=== PATIENT | male | born 1945 | race Hispanic/Latino ===

== ENCOUNTER 2019-07-05 10:00 | Day surgery (SDC) | payer OTHER ==
[~2019-07-05 10:00] MED LIST: SODIUM CHLORIDE 0.9% 1000 ML 1,000 ML IV SCH
[2019-07-05] MEDS ORDERED: LIDOCAINE MPF (2%) 20 MG/1 ML VIAL 5 ML ONE (11:00)
--- NOTE | 2019-07-05 11:05 | Anesthesia Day of Surgery ---
Anesthesia Day of Surgery - Day of Surgery Patient Examined: Yes Patient H&P Reviewed: Yes Patient is NPO: Yes
--- NOTE | 2019-07-05 11:18 | Anesthesia Consultation ---
Anesthesia Consult and Med Hx Date of service: 07/05/19 - Airway Anesthetic Teeth Evaluation: Good, Caps ROM Head & Neck: Adequate Mental/Hyoid Distance: Adequate Mallampati Class: Class III Intubation Access Assessment: Possibly Difficult - Pre-Operative Health Status ASA Pre-Surgery Classification: ASA3 Proposed Anesthetic Plan: MAC - Pulmonary Hx Asthma: Yes (Cardiac Asthma) Hx Sleep Apnea: Yes - Cardiovascular System Hx Hypertension: Yes (Pt states can climb two flights of stairs) Hx Coronary Artery Disease: Yes (Sleeps on one pillow. Reports some ankle swelling) Hx Heart Attack/AMI: No Hx Cardia Arrhythmia: Yes (Tachy)
[2019-07-05] MEDS ORDERED: PROPOFOL 200 MG/20 ML VIAL IV ONE ×2 (12:13)
--- NOTE | 2019-07-05 13:17 | Procedure Note ---
Date of procedure: 07/05/19 Pre-op diagnosis: H/O Colon Polyps/ Colon Polyp Screening Post-op diagnosis: other (Multiple Colon Polyps in the Ascending Colon,Distal Transverse Colon,Sigmoid Colon and Rectum/Moderate,Left Colon diverticuli and Minor,External Hemorrhoid but no Internal Hemorrhoids) Procedure: Colonoscopy with Snare Polypectomy and Cold Biopsy and use of Woodward Net Anesthesia: MAC Surgeon: TREVOR MERRITT Estimated blood loss: minimal Pathology: list Specimen disposition: to lab Condition: stable Disposition: same day (Encourage fiber intake; avoid aspirin and NSAID and aanticoagulants for 4 days, otherwise resume home medication. Follow up in 1 to 2 weeks ([phone]).)
--- NOTE | 2019-07-05 13:22 | Operative Report ---
PROCEDURE: Colonoscopy with snare polypectomy, cold biopsy and use of a Woodward net. INDICATIONS: A 73-year-old white male with an underlying history of diabetes, hypertension, who has prior history of colonoscopy, last colonoscopy was done a few years ago, where he was said to have had a few polyps removed at that time. Repeat colonoscopy was done to make sure there was not any recurrence of any polyps. DESCRIPTION OF PROCEDURE: Procedure was done after getting informed consent with MAC anesthesia. Initial rectal exam was unremarkable other than for some minor external hemorrhoids. Instrument was passed through the rectum onto the cecum, which was identified with ileocecal valve and the appendiceal orifice. Visualization was fair. The mucosa was washed with copious amounts of water. The cecum showed normal mucosa. In the ascending colon, there were about 4-5 polyps noted. These were removed by snare polypectomy and some were retrieved by the Woodward net. It was difficult to retrieve it otherwise, since the patient had heavy body movements with his respiration. Most of the transverse colon showed normal mucosa. In the distal transverse colon, there was another 11 mm polyp that was removed by snare excision and part of it was retrieved. The polyps that were in the ascending colon varied in size from 10-12 mm in diameter. In the sigmoid, there was a 10 mm polyp that was removed by snare polypectomy and retrieved and the rectum showed a small polyp, possibly hyperplastic that was removed by cold biopsy and removed. On the retroverted view, no internal hemorrhoid was noted. There was minimal bleeding associated with the polypectomy and no complications associated with the procedure. ASSESSMENT: History of colon polyps, colon polyp screening, multiple colon polyps noted in the proximal colon, namely the ascending colon and also in the distal transverse and sigmoid, there was 1 polyp each as well as in the rectum, there was 1 polyp there. The rectal polyp was possibly hyperplastic. There were no internal hemorrhoid noted and minor external hemorrhoid that was noted during the rectal exam. Plan is to have the patient resume his home medication, but to avoid any aspirin or aspirin-related products and anticoagulants for the next 3 days. The patient also had moderate diverticular disease involving the left colon and will be encouraged to take fiber supplements and follow up in the office in 1-2 weeks' time. The procedure was done in the GI lab with assistance of the GI lab team, which included Jeane MCDERMOTT including betsy Hare and with assistance of Anesthesia. JOB# [id number] DEL/CHANDLER
[2019-07-05 13:40] VITALS: BP 127/92
--- NOTE | 2019-07-06 08:47 | Post Anesthesia Evaluation ---
- Post Anesthesia Evaluation Patient Participated: Yes Airway Patent: Yes Stable Respiratory Function: Yes Nausea/Vomiting: No Temp > 96.8F: Yes Pain Manageable: Yes Adequeate Hydration: Yes Anesthesia Complications: No Block Receding Appropriately: Not Applicable Patient on Ventilator: No
== END 2019-07-05 13:47 | disposition home or self-care (01) ==
LOC: GIO 10:00
DX: Z12.11 Encounter for screening for malignant neoplasm of colon (principal); D12.8 Benign neoplasm of rectum; D12.3 Benign neoplasm of transverse colon; D12.2 Benign neoplasm of ascending colon; E11.9 Type 2 diabetes mellitus without complications; I10 Essential (primary) hypertension; I42.9 Cardiomyopathy, unspecified; I25.10 Atherosclerotic heart disease of native coronary artery without angina pectoris; J45.909 Unspecified asthma, uncomplicated; G47.30 Sleep apnea, unspecified; Z86.010 Personal history of colon polyps; Z79.899 Other long term (current) drug therapy
CPT/HCPCS: 45380; 45385; 88305; J2704; J7030

== ENCOUNTER 2019-07-11 10:18 | Inpatient (IN) | payer MEDICARE, OTHER ==
[2019-07-11 11:45] LABS: Basophils % (Auto) 0.4 % (0.0-1.8); Eosinophils # (Auto) 0.1 K/mm3 (0.0-0.4); Eosinophils % (Auto) 1.5 % (0.0-4.3); Hematocrit 42.5 % (35.5-45.6); Lymphocytes # (Auto) 1.1 K/mm3 (1.2-5.4); Lymphocytes % (Auto) 13.1 % (13.4-35.0); Mean Corpuscular HGB Conc 33 % (32-34); Mean Corpuscular Volume 97 fl (84-94); Monocytes # (Auto) 0.5 K/mm3 (0.0-0.8); Monocytes % (Auto) 6.4 % (0.0-7.3); Platelet Count 233 K/mm3 (140-440); Red Blood Count 4.37 M/mm3 (3.65-5.03); Red Cell Distribution Width 14.4 % (13.2-15.2)
[2019-07-11 11:54] LABS: INR 1.27 (0.87-1.13); Partial Thromboplastin Time 32.7 Sec. (24.2-36.6)
[2019-07-11 12:07] LABS: Albumin 3.8 g/dL (3.9-5); Calcium 8.7 mg/dL (8.4-10.2)
[2019-07-11] MEDS ORDERED: ONDANSETRON 4 MG ODT TAB ONE ×2 (12:09)
[2019-07-11] MEDS ORDERED: SODIUM CHLORIDE 0.9% 1000 ML 1,000 ML IV ONE ×3 (12:34→17:27)
--- NOTE | 2019-07-11 13:55 | History and Physical Report ---
History of Present Illness Chief complaint: Im bleeding History of present illness: 73 YO Male with Atrial Fib on Therapeutic anticoagulation with Xarelto, HTN, OA, Asthma presents to ED for evaluation. Pt states that he underwent a colonoscopy with polypectomy x7 last week. Pt restarted his anticoagulation 3 days ago. Pt has also experienced abdominal discomfort over the past 2 days with the sudden onset of bloody stools overnight. Pt acknowledges multiple bloody bowel movements overnight. Pt also reports generalized weakness. Pt transported to [facility] via private vehicle. Pt seen and evaluated in ED and found to have GI Bleed complicated by Acidosis. Pt admitted to [facility]. Pt denies fever, chills, CP, palpitations, trauma, syncope, ingestion of food/water from new/different sources. No prior admission for review. All listed medication reconciled at time of admission. Past History Past Medical History: other (see hpi) Past Surgical History: total knee replacement, Other (Rotator cuff surgery) Social history: . denies: smoking, alcohol abuse, prescription drug abuse Family history: no significant family history (reviewed) Medications and Allergies Allergies Allergy/AdvReac Type Severity Reaction Status Date / Time No Known Allergies Allergy Unverified 07/04/19 14:08 Home Medications Medication Instructions Recorded Confirmed Last Taken Type Allopurinol 07/04/19 07/03/19 History Atenolol 07/04/19 07/05/19 06:00 History Indomethacin 07/04/19 07/03/19 History Meloxicam 07/04/19 07/03/19 History Potassium 07/04/19 07/03/19 History ProAir HFA Inhaler 07/04/19 Unknown History Protonix 07/04/19 07/03/19 History Symbicort 160-4.5 Mcg Inhaler 07/04/19 07/03/19 History Tamsulosin 0.4 PO PRN 07/04/19 Unknown History Xarelto 07/04/19 06/30/19 History amLODIPine 5 mg PO DAILY 07/04/19 07/05/19 07/05/19 06:00 History Review of Systems Constitutional: no weight loss, no weight gain, no fever, no chills Ears, nose, mouth and throat: no ear pain, no ear discharge, no tinnitis, no decreased hearing, no nose pain, no nasal congestion Cardiovascular: no chest pain, no orthopnea, no palpitations, no rapid/irregular heart beat, no edema, no syncope Respiratory: no cough, no cough with sputum, no hemoptysis Gastrointestinal: abdominal pain, BRBPR, no nausea, no vomiting, no hematemesis, no coffee ground emesis, no early satiety Genitourinary Male: no hematuria, no flank pain, no discharge, no urinary frequency, no urinary hesitancy Rectal: bleeding, no pain, no incontinence Musculoskeletal: no neck stiffness, no neck pain, no shooting arm pain, no arm numbness/tingling, no low back pain Integumentary: no rash, no pruritis, no redness, no sores, no wounds, no jaundice, no boils Neurological: no transient paralysis, no paralysis, no weakness, no parathesias, no numbness, no tingling, no seizures, no syncope Psychiatric: no anxiety, no memory loss, no change in sleep habits, no sleep disturbances, no insomnia, no hypersomnia, no change in appetite, no change in libido, no suicidal ideation Endocrine: no cold intolerance, no heat intolerance, no polyphagia, no excessive thirst, no polydipsia, no polyuria, no nocturia Hematologic/Lymphatic: no easy bruising, no easy bleeding, no lymphadenopathy, no lymphedema Allergic/Immunologic: no urticaria, no wheezing, no persistent infections, no angioedema Exam - Constitutional Vitals: Temp Pulse Resp BP Pulse Ox 97.6 F 76 18 97/53 95 07/11/19 10:31 07/11/19 12:20 07/11/19 12:20 07/11/19 12:20 07/11/19 12:20 General appearance: Present: mild distress, obese - EENT Eyes: Present: PERRL ENT: hearing intact, clear oral mucosa - Neck Neck: Present: supple, normal ROM - Respiratory Respiratory effort: normal Respiratory: bilateral: CTA - Cardiovascular Heart Sounds: Present: S1 & S2. Absent: rub, click - Extremities Extremities: pulses symmetrical, No edema Peripheral Pulses: within normal limits - Abdominal General gastrointestinal: Present: soft, non-tender, non-distended, normal bowel sounds Male genitourinary: Present: normal - Integumentary Integumentary: Present: clear, warm, dry - Musculoskeletal Musculoskeletal: gait normal, strength equal bilaterally - Psychiatric Psychiatric: appropriate mood/affect, intact judgment & insight - Neurologic Neurologic: CNII-XII intact, moves all extremities Results - Labs CBC & Chem 7: 07/11/19 11:27 07/11/19 11:27 Labs: Abnormal lab results 07/11/19 07/11/19 07/11/19 Range/Units 11:27 11: 11:27 MCV 97 H (84-94) fl Lymph % (Auto) 13.1 L (13.4-35.0) % Lymph # 1.1 L (1.2-5.4) K/mm3 Seg Neutrophils % 78.6 H (40.0-70.0) % PT 15.7 H (12.2-14.9) Sec. INR 1.27 H (0.87-1.13) Chloride 108.7 H (98-107) mmol/L Carbon Dioxide 16 L (22-30) mmol/L Glucose 106 H (75-100) mg/dL Albumin 3.8 L (3.9-5) g/dL Assessment and Plan - Patient Problems (1) GI bleed Current Visit: Yes Status: Acute Qualifiers: GI bleed type/associated pathology: unspecified gastrointestinal hemorrhage type Qualified Code(s): K92.2 - Gastrointestinal hemorrhage, unspecified Plan to address problem: PPI therapy, serial cbc, PRBC transfusion if hgb drops more than 2 grams on sequential CBC, GI consulted in ED, Hold anticoagulation, repeat cbc (2) Acidosis Current Visit: Yes Status: Acute Plan to address problem: IVF resuscitation therapy, repeat bmp, IV bicarbonate x 1 (3) Obesity hypoventilation syndrome Current Visit: Yes Status: Acute Plan to address problem: Supplemental oxygen, nebulizer therapy, NIPPV as clinically indicated, (4) Hypotension due to blood loss Current Visit: Yes Status: Acute Plan to address problem: IVF resuscitation therapy, monitor bp q shift, (5) DVT prophylaxis Current Visit: Yes Status: Acute Plan to address problem: SCD to BLE while in bed, supportive care, hold anticoagulation secondary to GI gage guaman
[2019-07-11] MEDS ORDERED: ONDANSETRON 4 MG/2 ML INJ IV PRN (13:56)
[2019-07-11] MEDS ORDERED: ACETAMINOPHEN 325 MG TAB PO PRN (13:56)
--- NOTE | 2019-07-11 14:04 | Emergency Department Report ---
ED GI Bleed HPI - General Chief complaint: GI Bleed Stated complaint: BLOOD IN STOOL REF BY DR MURRAY Time Seen by Provider: 07/11/19 12:29 Source: patient Mode of arrival: Ambulatory Limitations: No Limitations - History of Present Illness Initial comments: Patient is a 73-year-old male with past medical history atrial fibrillation who is presenting with GI bleed. Patient states that on 07/05/2019 the patient had a colonoscopy with removal of approximate 7 polyps. Patient was taken off Xeralto prior to having the surgery. She states initially he had no Occasions after surgery and he restarted his Xeralto on 07/08/2019. Last night the patient started having some bleeding. Patient has had consuelo blood per rectum. States it is some associated dizziness especially when he stands up. Patient has some crampy lower abdominal discomfort. He denies fevers or nausea and vomiting cough cold or congestion. - Related Data Home Medications Medication Instructions Recorded Confirmed Last Taken Allopurinol 07/04/19 07/03/19 Atenolol 07/04/19 07/05/19 06:00 Indomethacin 07/04/19 07/03/19 Meloxicam 07/04/19 07/03/19 Potassium 07/04/19 07/03/19 ProAir HFA Inhaler 07/04/19 Unknown Protonix 07/04/19 07/03/19 Symbicort 160-4.5 Mcg Inhaler 07/04/19 07/03/19 Tamsulosin 0.4 PO PRN 07/04/19 Unknown Xarelto 07/04/19 06/30/19 amLODIPine 5 mg PO DAILY 07/04/19 07/05/19 07/05/19 06:00 Allergies Allergy/AdvReac Type Severity Reaction Status Date / Time No Known Allergies Allergy Unverified 07/04/19 14:08 ED Review of Systems ROS: Stated complaint: BLOOD IN STOOL REF BY DR MURRAY Other details as noted in HPI Comment: All other systems reviewed and negative ED Past Medical Hx - Past Medical History Previous Medical History?: Yes Hx Hypertension: Yes (Pt states can climb two flights of stairs) Hx Heart Attack/AMI: No Hx Arthritis: Yes Hx Asthma: Yes (Cardiac Asthma) - Surgical History Past Surgical History?: Yes Additional Surgical History: right knee replacement. right rotator cuff repair - Social History Smoking Status: Former Smoker Substance Use Type: Alcohol - Medications Home Medications: Home Medications Medication Instructions Recorded Confirmed Last Taken Type Allopurinol 07/04/19 07/03/19 History Atenolol 07/04/19 07/05/19 06:00 History Indomethacin 07/04/19 07/03/19 History Meloxicam 07/04/19 07/03/19 History Potassium 07/04/19 07/03/19 History ProAir HFA Inhaler 07/04/19 Unknown History Protonix 07/04/19 07/03/19 History Symbicort 160-4.5 Mcg Inhaler 07/04/19 07/03/19 History Tamsulosin 0.4 PO PRN 07/04/19 Unknown History Xarelto 07/04/19 06/30/19 History amLODIPine 5 mg PO DAILY 07/04/19 07/05/19 07/05/19 06:00 History ED Physical Exam - General Limitations: No Limitations General appearance: alert, in no apparent distress - Head Head exam: Present: atraumatic, normocephalic - Eye Eye exam: Present: normal appearance, PERRL, EOMI - ENT ENT exam: Present: mucous membranes moist - Neck Neck exam: Present: normal inspection - Respiratory Respiratory exam: Present: normal lung sounds bilaterally. Absent: respiratory distress, wheezes, rales, rhonchi - Cardiovascular Cardiovascular Exam: Present: normal rhythm, tachycardia, normal heart sounds. Absent: systolic murmur, diastolic murmur, rubs, gallop - GI/Abdominal GI/Abdominal exam: Present: soft, normal bowel sounds. Absent: distended, tenderness, guarding, rebound - Rectal Rectal exam: Present: deferred - Extremities Exam Extremities exam: Present: normal inspection - Back Exam Back exam: Present: normal inspection - Neurological Exam Neurological exam: Present: alert, oriented X3 - Psychiatric Psychiatric exam: Present: normal affect, normal mood - Skin Skin exam: Present: warm, dry, intact, normal color. Absent: rash ED Course Vital Signs 07/11/19 07/11/19 10:31 12:20 Temperature 97.6 F Pulse Rate 93 H 76 Respiratory 20 18 Rate Blood Pressure 91/69 Blood Pressure 97/53 [Left] O2 Sat by Pulse 98 95 Oximetry ED Medical Decision Making - Lab Data Result diagrams: 07/11/19 11:27 07/11/19 11:27 Lab Results 07/11/19 07/11/19 07/11/19 Range/Units 11:27 11:27 11:27 WBC 8.6 (4.5-11.0) K/mm3 RBC 4.37 (3.65-5.03) M/mm3 Hgb 14.0 (11.8-15.2) gm/dl Hct 42.5 (35.5-45.6) % MCV 97 H (84-94) fl MCH 32 (28-32) pg MCHC 33 (32-34) % RDW 14.4 (13.2-15.2) % Plt Count 233 (140-440) K/mm3 Lymph % (Auto) 13.1 L (13.4-35.0) % [place] % (Auto) 6.4 (0.0-7.3) % Eos % (Auto) 1.5 (0.0-4.3) % Baso % (Auto) 0.4 (0.0-1.8) % Lymph # 1.1 L (1.2-5.4) K/mm3 [place] # 0.5 (0.0-0.8) K/mm3 Eos # 0.1 (0.0-0.4) K/mm3 Baso # 0.0 (0.0-0.1) K/mm3 Seg Neutrophils % 78.6 H (40.0-70.0) % Seg Neutrophils # 6.8 (1.8-7.7) K/mm3 PT 15.7 H (12.2-14.9) Sec. INR 1.27 H (0.87-1.13) APTT 32.7 (24.2-36.6) Sec. Sodium 140 (137-145) mmol/L Potassium 4.5 (3.6-5.0) mmol/L Chloride 108.7 H (98-107) mmol/L Carbon Dioxide 16 L (22-30) mmol/L Anion Gap 20 mmol/L BUN 20 (9-20) mg/dL Creatinine 1.2 (0.8-1.5) mg/dL Estimated GFR 60 ml/min BUN/Creatinine Ratio 17 % Glucose 106 H (75-100) mg/dL Calcium 8.7 (8.4-10.2) mg/dL Total Bilirubin 0.60 (0.1-1.2) mg/dL AST 24 (5-40) units/L ALT 24 (7-56) units/L Alkaline Phosphatase 56 (35-129) units/L Total Protein 6.6 (6.3-8.2) g/dL Albumin 3.8 L (3.9-5) g/dL Albumin/Globulin Ratio 1.4 % Blood Type Antibody Screen 07/11/19 Range/Units 11:27 WBC (4.5-11.0) K/mm3 RBC (3.65-5.03) M/mm3 Hgb (11.8-15.2) gm/dl Hct (35.5-45.6) % MCV (84-94) fl MCH (28-32) pg MCHC (32-34) % RDW (13.2-15.2) % Plt Count (140-440) K/mm3 Lymph % (Auto) (13.4-35.0) % [place] % (Auto) (0.0-7.3) % Eos % (Auto) (0.0-4.3) % Baso % (Auto) (0.0-1.8) % Lymph # (1.2-5.4) K/mm3 [place] # (0.0-0.8) K/mm3 Eos # (0.0-0.4) K/mm3 Baso # (0.0-0.1) K/mm3 Seg Neutrophils % (40.0-70.0) % Seg Neutrophils # (1.8-7.7) K/mm3 PT (12.2-14.9) Sec. INR (0.87-1.13) APTT (24.2-36.6) Sec. Sodium (137-145) mmol/L Potassium (3.6-5.0) mmol/L Chloride (98-107) mmol/L Carbon Dioxide (22-30) mmol/L Anion Gap mmol/L BUN (9-20) mg/dL Creatinine (0.8-1.5) mg/dL Estimated GFR ml/min BUN/Creatinine Ratio % Glucose (75-100) mg/dL Calcium (8.4-10.2) mg/dL Total Bilirubin (0.1-1.2) mg/dL AST (5-40) units/L ALT (7-56) units/L Alkaline Phosphatase (35-129) units/L Total Protein (6.3-8.2) g/dL Albumin (3.9-5) g/dL Albumin/Globulin Ratio % Blood Type A POSITIVE Antibody Screen Negative Vital Signs 07/11/19 07/11/19 10:31 12:20 Temperature 97.6 F Pulse Rate 93 H 76 Respiratory 20 18 Rate Blood Pressure 91/69 Blood Pressure 97/53 [Left] O2 Sat by Pulse 98 95 Oximetry - Medical Decision Making At the time of discharge the patient blood pressure is 110 systolic. Patient states he is feeling better after receiving some IV fluids. Talked to Dr. Connelly who states that he believes the patient should stay for observation which I do agree. The patient will have his hemoglobin monitor and continuous IV fluids. Patient was been taken off his blood thinner and if he continues to bleed may need additional procedures to stop his bleeding. Critical care attestation.: If time is entered above; I have spent that time in minutes in the direct care of this critically ill patient, excluding procedure time. ED Disposition Clinical Impression: Hypotension due to blood loss GI bleed Qualifiers: GI bleed type/associated pathology: unspecified gastrointestinal hemorrhage type Qualified Code(s): K92.2 - Gastrointestinal hemorrhage, unspecified Disposition: DC-09 OP ADMIT IP TO THIS HOSP Is pt being admited?: Yes Does the pt Need Aspirin: No Condition: Stable Time of Disposition: 14:04
[2019-07-11] MEDS: PANTOPRAZOLE 40 MG INJ IV SCH ×2 (14:49→22:44)
[2019-07-11] MEDS ORDERED: SODIUM BICARB 8.4% 50 MEQ/50 ML SYRINGE IV ONE ×2 (17:00)
[2019-07-11] MEDS ORDERED: SODIUM CHLORIDE 0.9% 1000 ML 1,000 ML ONE (17:02)
--- NOTE | 2019-07-11 17:28 | Consultation ---
History of Present Illness - Reason for Consult Consult date: 07/11/19 Lower GI Bleeding - History of Present Illness 73 year old male with a h/o Hypertension,Cardiac asthma.tachyarrythmia and gout. Patient is on anticoagulants and NSAID. Patient had a colonoscopy on 07/05/2019 with removal of 7 colon polyps by snare polypectomy (5 from the proximal colon,one from the distal transverse colon and one from the proximal, descending colon). Patient had been of the anticoagulants for 3 days and had resumed his medication and today noticed lower GI bleeding for which the patient was adviced to come to the ER. Consult has been dictated. Patient is alert, oriented and in no apparent distress and has a Hemoglobin of 14. Patient is to be admitted and he is to observed closely. If the patient has a significant drop in his Hemoglobin, patient will receive blodd transfusion and will have a colonoscopy done. Past History Past Medical History: other (see hpi) Past Surgical History: total knee replacement, Other (Rotator cuff surgery) Social history: . denies: smoking, alcohol abuse, prescription drug abuse Family history: no significant family history (reviewed) Medications and Allergies Allergies Allergy/AdvReac Type Severity Reaction Status Date / Time No Known Allergies Allergy Unverified 07/04/19 14:08 Home Medications Medication Instructions Recorded Confirmed Last Taken Type Allopurinol 07/04/19 07/03/19 History Atenolol 07/04/19 07/05/19 06:00 History Indomethacin 07/04/19 07/03/19 History Meloxicam 07/04/19 07/03/19 History Potassium 07/04/19 07/03/19 History ProAir HFA Inhaler 07/04/19 Unknown History Protonix 07/04/19 07/03/19 History Symbicort 160-4.5 Mcg Inhaler 07/04/19 07/03/19 History Tamsulosin 0.4 PO PRN 07/04/19 Unknown History Xarelto 07/04/19 06/30/19 History amLODIPine 5 mg PO DAILY 07/04/19 07/05/19 07/05/19 06:00 History Active Meds: Active Medications Acetaminophen (Tylenol) 650 mg PO Q4H PRN PRN Reason: Pain MILD(1-3)/Fever >100.5/MEJÍA Amlodipine Besylate (Amlodipine) 5 mg PO QDAY NOEMI Sodium Chloride (Nacl 0.9% 1000 Ml) 1,000 mls @ 75 mls/hr IV DIRECT NOEMI Miscellaneous Medication (Tamsulosin) 0.4 mg PO PRN NOEMI Ondansetron HCl (Zofran) 4 mg IV Q8H PRN PRN Reason: Nausea And Vomiting Pantoprazole Sodium (Protonix) 40 mg IV BID [facility] Last Admin: 07/11/19 14:49 Dose: 40 mg Documented by: Sodium Chloride (Sodium Chloride Flush Syringe 10 Ml) 10 ml IV BID [facility] Sodium Chloride (Sodium Chloride Flush Syringe 10 Ml) 10 ml IV PRN PRN PRN Reason: LINE FLUSH Exam - Constitutional Vitals: Temp Pulse Resp BP Pulse Ox 97.6 F 75 16 103/72 95 07/11/19 10:31 07/11/19 16:52 07/11/19 16:52 07/11/19 16:52 07/11/19 16:52 Results - Labs CBC & Chem 7: 07/11/19 11:27 07/11/19 11:27 Labs: Abnormal lab results 07/11/19 07/11/19 07/11/19 Range/Units 11:27 11:27 11:27 MCV 97 H (84-94) fl Lymph % (Auto) 13.1 L (13.4-35.0) % Lymph # 1.1 L (1.2-5.4) K/mm3 Seg Neutrophils % 78.6 H (40.0-70.0) % PT 15.7 H (12.2-14.9) Sec. INR 1.27 H (0.87-1.13) Chloride 108.7 H (98-107) mmol/L Carbon Dioxide 16 L (22-30) mmol/L Glucose 106 H (75-100) mg/dL Albumin 3.8 L (3.9-5) g/dL
[2019-07-11] MEDS: SODIUM CHLORIDE 0.9% 1000 ML 1,000 ML IV SCH (20:18)
[2019-07-11 21:11] LABS: Hematocrit 33.6 % (35.5-45.6); Hemoglobin 11.2 gm/dl (11.8-15.2)
[2019-07-11 21:12] LABS: Basophils % (Auto) 0.5 % (0.0-1.8); Eosinophils # (Auto) 0.2 K/mm3 (0.0-0.4); Eosinophils % (Auto) 3.3 % (0.0-4.3); Hematocrit 33.2 % (35.5-45.6); Hemoglobin 11.1 gm/dl (11.8-15.2); Lymphocytes # (Auto) 1.4 K/mm3 (1.2-5.4); Mean Corpuscular HGB Conc 34 % (32-34); Mean Corpuscular Volume 97 fl (84-94); Monocytes # (Auto) 0.4 K/mm3 (0.0-0.8); Monocytes % (Auto) 7.5 % (0.0-7.3); Platelet Count 200 K/mm3 (140-440); Red Blood Count 3.44 M/mm3 (3.65-5.03); Red Cell Distribution Width 14.5 % (13.2-15.2)
[2019-07-11 21:14] LABS: Basophils % (Auto) 0.5 % (0.0-1.8); Eosinophils # (Auto) 0.2 K/mm3 (0.0-0.4); Eosinophils % (Auto) 3.3 % (0.0-4.3); Hematocrit 33.7 % (35.5-45.6); Hemoglobin 11.2 gm/dl (11.8-15.2); Lymphocytes # (Auto) 1.3 K/mm3 (1.2-5.4); Lymphocytes % (Auto) 22.6 % (13.4-35.0); Mean Corpuscular HGB Conc 33 % (32-34); Mean Corpuscular Volume 98 fl (84-94); Monocytes # (Auto) 0.4 K/mm3 (0.0-0.8); Monocytes % (Auto) 7.3 % (0.0-7.3); Platelet Count 202 K/mm3 (140-440); Red Blood Count 3.45 M/mm3 (3.65-5.03); Red Cell Distribution Width 14.5 % (13.2-15.2)
[2019-07-12 05:36] LABS: Basophils % (Auto) 0.6 % (0.0-1.8); Eosinophils # (Auto) 0.2 K/mm3 (0.0-0.4); Eosinophils % (Auto) 3.8 % (0.0-4.3); Hemoglobin 10.2 gm/dl (11.8-15.2); Lymphocytes # (Auto) 1.2 K/mm3 (1.2-5.4); Lymphocytes % (Auto) 21.4 % (13.4-35.0); Mean Corpuscular HGB Conc 34 % (32-34); Mean Corpuscular Volume 96 fl (84-94); Monocytes # (Auto) 0.4 K/mm3 (0.0-0.8); Monocytes % (Auto) 7.2 % (0.0-7.3); Platelet Count 186 K/mm3 (140-440); Red Blood Count 3.13 M/mm3 (3.65-5.03); Red Cell Distribution Width 14.5 % (13.2-15.2)
[2019-07-12 05:38] LABS: Basophils % (Auto) 0.5 % (0.0-1.8); Eosinophils # (Auto) 0.2 K/mm3 (0.0-0.4); Hematocrit 30.5 % (35.5-45.6); Hemoglobin 10.2 gm/dl (11.8-15.2); Lymphocytes # (Auto) 1.3 K/mm3 (1.2-5.4); Lymphocytes % (Auto) 21.9 % (13.4-35.0); Mean Corpuscular HGB Conc 34 % (32-34); Mean Corpuscular Volume 96 fl (84-94); Monocytes # (Auto) 0.4 K/mm3 (0.0-0.8); Monocytes % (Auto) 7.2 % (0.0-7.3); Platelet Count 182 K/mm3 (140-440); Red Blood Count 3.16 M/mm3 (3.65-5.03); Red Cell Distribution Width 14.6 % (13.2-15.2)
[2019-07-12 06:06] LABS: Alanine Aminotransferase 18 units/L (7-56); Albumin 3.1 g/dL (3.9-5); BUN/Creatinine Ratio 17; Blood Urea Nitrogen 17 mg/dL (9-20); Calcium 7.6 mg/dL (8.4-10.2); Hemolysis Index 5
[2019-07-12] MEDS ORDERED: NON-FORMULARY EACH (Amlodipine 5 MG) PO SCH (10:00)
[2019-07-12 10:07] LABS: Basophils % (Auto) 0.5 % (0.0-1.8); Eosinophils # (Auto) 0.2 K/mm3 (0.0-0.4); Hematocrit 31.2 % (35.5-45.6); Hemoglobin 10.3 gm/dl (11.8-15.2); Lymphocytes # (Auto) 1.4 K/mm3 (1.2-5.4); Lymphocytes % (Auto) 21.6 % (13.4-35.0); Mean Corpuscular HGB Conc 33 % (32-34); Mean Corpuscular Volume 96 fl (84-94); Monocytes # (Auto) 0.4 K/mm3 (0.0-0.8); Monocytes % (Auto) 5.9 % (0.0-7.3); Platelet Count 209 K/mm3 (140-440); Red Blood Count 3.25 M/mm3 (3.65-5.03); Red Cell Distribution Width 14.7 % (13.2-15.2)
[2019-07-12] MEDS: amLODIPine 5 MG TAB PO SCH (10:11)
[2019-07-12] MEDS: PANTOPRAZOLE 40 MG INJ IV SCH ×2 (10:11→21:12)
[2019-07-12 10:17] LABS: INR 1.1 (0.87-1.13)
[2019-07-12 10:26] LABS: BUN/Creatinine Ratio 16; Blood Urea Nitrogen 14 mg/dL (9-20); Calcium 7.9 mg/dL (8.4-10.2); Hemolysis Index 8
[2019-07-12] MEDS ORDERED: SODIUM CHLORIDE 0.9% 500 ML 500 ML IV NR (12:15)
[2019-07-12 13:02] LABS: Basophils % (Auto) 0.7 % (0.0-1.8); Eosinophils # (Auto) 0.2 K/mm3 (0.0-0.4); Eosinophils % (Auto) 4.4 % (0.0-4.3); Hematocrit 29.8 % (35.5-45.6); Hemoglobin 9.8 gm/dl (11.8-15.2); Lymphocytes # (Auto) 1.1 K/mm3 (1.2-5.4); Lymphocytes % (Auto) 23.2 % (13.4-35.0); Mean Corpuscular HGB Conc 33 % (32-34); Mean Corpuscular Volume 97 fl (84-94); Monocytes # (Auto) 0.2 K/mm3 (0.0-0.8); Platelet Count 181 K/mm3 (140-440); Red Blood Count 3.07 M/mm3 (3.65-5.03); Red Cell Distribution Width 14.3 % (13.2-15.2)
--- NOTE | 2019-07-12 14:23 | Progress Note ---
Subjective Date of service: 07/12/19 Interval history: Patient states that he has had a significant decrease in the amount of lower GI bleeding he has been having since admisssion. Patient is alert,oriented and in no apparent distress. Patient has had a drop in his Hemoglobin and Hematocrit and is possibly to receive one Unit of PRBC. Patient has been given the option of having a repeat colonoscopy done to assess the source of the bleeding and to cauterize the bleeding site, if needed. 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 Hypertension/H/O Cardiac Asthma Possible colonoscopy if the patient has persistence of GI Bleeding. Objective - Constitutional Vitals: Vital Signs - 12hr 07/12/19 07/12/19 07/12/19 02:20 02:30 02:40 Temperature Pulse Rate 77 79 82 Pulse Rate [ From Monitor] Respiratory 24 20 20 Rate Blood Pressure 127/64 127/64 127/64 O2 Sat by Pulse 93 94 93 Oximetry 07/12/19 07/12/19 07/12/19 02:50 03:00 03:10 Temperature Pulse Rate 82 91 H 83 Pulse Rate [ From Monitor] Respiratory 11 L 22 15 Rate Blood Pressure 127/64 131/76 131/76 O2 Sat by Pulse 96 98 97 Oximetry 07/12/19 07/12/19 07/12/19 03:20 03:30 03:40 Temperature Pulse Rate 81 73 78 Pulse Rate [ From Monitor] Respiratory 20 20 15 Rate Blood Pressure 131/76 131/76 131/76 O2 Sat by Pulse 95 97 97 Oximetry 07/12/19 07/12/19 07/12/19 03:50 04:00 04:10 Temperature 97.7 F Pulse Rate 75 70 89 Pulse Rate [ 86 From Monitor] Respiratory 31 H 30 H 15 Rate Blood Pressure 131/76 131/76 140/78 O2 Sat by Pulse 98 94 97 Oximetry 07/12/19 07/12/19 07/12/19 04:20 04:30 04:40 Temperature Pulse Rate 96 H 91 H 85 Pulse Rate [ From Monitor] Respiratory 17 18 21 Rate Blood Pressure 140/78 140/78 140/78 O2 Sat by Pulse 91 96 Oximetry 07/12/19 07/12/19 07/12/19 04:50 05:00 05:10 Temperature Pulse Rate 80 81 85 Pulse Rate [ From Monitor] Respiratory 15 12 12 Rate Blood Pressure 140/78 140/78 140/78 O2 Sat by Pulse 97 98 98 Oximetry 07/12/19 07/12/19 07/12/19 05:20 05:30 05:40 Temperature Pulse Rate 75 76 75 Pulse Rate [ From Monitor] Respiratory 20 19 18 Rate Blood Pressure 124/83 124/83 124/83 O2 Sat by Pulse 97 96 98 Oximetry 07/12/19 07/12/19 07/12/19 05:50 06:00 06:10 Temperature Pulse Rate 85 113 H 83 Pulse Rate [ From Monitor] Respiratory 14 18 17 Rate Blood Pressure 124/83 124/83 124/83 O2 Sat by Pulse 98 93 96 Oximetry 07/12/19 07/12/19 07/12/19 06:20 06:30 06:40 Temperature Pulse Rate 77 83 83 Pulse Rate [ From Monitor] Respiratory 17 17 19 Rate Blood Pressure 124/83 124/83 O2 Sat by Pulse 98 97 96 Oximetry 07/12/19 07/12/19 07/12/19 06:51 07:01 07:11 Temperature Pulse Rate 83 88 124 H Pulse Rate [ From Monitor] Respiratory 19 20 22 Rate Blood Pressure 127/99 127/99 O2 Sat by Pulse 94 97 Oximetry 07/12/19 07/12/19 07/12/19 07:21 07:31 07:41 Temperature Pulse Rate Pulse Rate [ From Monitor] Respiratory Rate Blood Pressure 127/99 127/99 127/99 O2 Sat by Pulse 97 97 96 Oximetry 07/12/19 07/12/19 07/12/19 08:00 09:00 10:00 Temperature 97.8 F Pulse Rate 89 84 83 Pulse Rate [ 86 From Monitor] Respiratory 19 18 22 Rate Blood Pressure 123/82 139/88 137/82 O2 Sat by Pulse 98 98 97 Oximetry 07/12/19 07/12/19 07/12/19 10:11 11:00 12:00 Temperature 97.7 F Pulse Rate 84 85 85 Pulse Rate [ 80 From Monitor] Respiratory 12 20 Rate Blood Pressure 137/82 137/82 132/65 O2 Sat by Pulse 97 97 Oximetry - Labs CBC & Chem 7: 07/12/19 12:26 07/12/19 09:00 Labs: Abnormal lab results 07/11/19 07/11/19 07/11/19 Range/Units 11:27 21:00 21:00 RBC 3.44 L 3.45 L (3.65-5.03) M/mm3 Hgb 11.1 L 11.2 L (11.8-15.2) gm/dl Hct 33.2 L D 33.7 L (35.5-45.6) % MCV 97 H 98 H (84-94) fl Mcpherson % (Auto) 7.5 H (0.0-7.3) % Eos % (Auto) (0.0-4.3) % Lymph # (1.2-5.4) K/mm3 Chloride (98-107) mmol/L Carbon Dioxide (22-30) mmol/L Glucose (75-100) mg/dL Calcium (8.4-10.2) mg/dL Total Protein (6.3-8.2) g/dL Albumin (3.9-5) g/dL Crossmatch See Detail 07/11/19 07/12/19 07/12/19 Range/Units 21:00 04:58 04:58 RBC 3.13 L (3.65-5.03) M/mm3 Hgb 11.2 L 10.2 L (11.8-15.2) gm/dl Hct 33.6 L 30.0 L (35.5-45.6) % MCV 96 H (84-94) fl Mcpherson % (Auto) (0.0-7.3) % Eos % (Auto) (0.0-4.3) % Lymph # (1.2-5.4) K/mm3 Chloride 114.0 H (98-107) mmol/L Carbon Dioxide 19 L (22-30) mmol/L Glucose (75-100) mg/dL Calcium 7.6 L (8.4-10.2) mg/dL Total Protein 4.9 L D (6.3-8.2) g/dL Albumin 3.1 L (3.9-5) g/dL Crossmatch 07/12/19 07/12/1919 Range/Units 04:58 09:00 09:00 RBC 3.16 L 3.25 L (3.65-5.03) M/mm3 Hgb 10.2 L 10.3 L (11.8-15.2) gm/dl Hct 30.5 L 31.2 L (35.5-45.6) % MCV 96 H 96 H (84-94) fl Mcpherson % (Auto) (0.0-7.3) % Eos % (Auto) (0.0-4.3) % Lymph # (1.2-5.4) K/mm3 Chloride 114.0 H (98-107) mmol/L Carbon Dioxide 17 L (22-30) mmol/L Glucose 114 H (75-100) mg/dL Calcium 7.9 L (8.4-10.2) mg/dL Total Protein (6.3-8.2) g/dL Albumin (3.9-5) g/dL Crossmatch 07/12/19 Range/Units 12:26 RBC 3.07 L (3.65-5.03) M/mm3 Hgb 9.8 L (11.8-15.2) gm/dl Hct 29.8 L (35.5-45.6) % MCV 97 H (84-94) fl Mcpherson % (Auto) (0.0-7.3) % Eos % (Auto) 4.4 H (0.0-4.3) % Lymph # 1.1 L (1.2-5.4) K/mm3 Chloride (98-107) mmol/L Carbon Dioxide (22-30) mmol/L Glucose (75-100) mg/dL Calcium (8.4-10.2) mg/dL Total Protein (6.3-8.2) g/dL Albumin (3.9-5) g/dL Crossmatch Medications & Allergies - Medications Allergies/Adverse Reactions: Allergies No Known Allergies Allergy (Unverified 07/04/19 14:08) Home Medications: Home Medications Medication Instructions Recorded Confirmed Last Taken Type Allopurinol 07/04/19 07/03/19 History Atenolol 07/04/19 07/05/19 06:00 History Indomethacin 07/04/19 07/03/19 History Meloxicam 07/04/19 07/03/19 History Potassium 07/04/19 07/03/19 History ProAir HFA Inhaler 07/04/19 Unknown History Protonix 07/04/19 07/03/19 History Symbicort 160-4.5 Mcg Inhaler 07/04/19 07/03/19 History Tamsulosin 0.4 PO PRN 07/04/19 Unknown History Xarelto 07/04/19 06/30/19 History amLODIPine 5 mg PO DAILY 07/04/19 07/05/19 07/05/19 06:00 History Active Medications: Generic Name Dose Route Start Last Admin Trade Name Freq PRN Reason Stop Dose Admin Acetaminophen 650 mg 07/11/19 13:56 Tylenol PO Q4H PRN Pain MILD(1-3)/Fever >100.5/MEJÍA Amlodipine Besylate 5 mg 07/12/19 10:00 07/12/19 10:11 Amlodipine PO 5 mg QDAY NOEMI Administration Sodium Chloride 1,000 mls @ 75 mls/hr 07/11/19 14:00 07/11/19 20:18 Nacl 0.9% 1000 Ml IV 75 mls/hr DIRECT NOEMI Administration Sodium Chloride 500 mls @ 0 mls/hr 07/12/19 12:15 Nacl 0.9% 500 Ml IV 07/12/19 23:59 ONCE NR As Directed Miscellaneous Medication 0.4 mg 07/11/19 14:00 Tamsulosin PO PRN NOEMI Ondansetron HCl 4 mg 07/11/19 13:56 Zofran IV Q8H PRN Nausea And Vomiting Pantoprazole Sodium 40 mg 07/11/19 14:04 07/12/19 10:11 Protonix IV 40 mg BID NOEMI Administration Sodium Chloride 10 ml 07/11/19 22:00 07/12/19 10:11 Sodium Chloride Flush Syringe 10 Ml IV 10 ml BID NOEMI Administration Sodium Chloride 10 ml 07/11/19 13:56 Sodium Chloride Flush Syringe 10 Ml IV PRN PRN LINE FLUSH
--- NOTE | 2019-07-12 14:26 | Consultation ---
HISTORY OF PRESENT ILLNESS: This is a 73-year-old white male with an underlying history of hypertension, possible congestive heart failure, who is on blood thinners like Xarelto and also takes indomethacin, possibly for gout. He had a colonoscopy done on of this month and had multiple polyps removed by snare polypectomy at that time. He had about 4 or 5 polyps that were removed from the proximal colon, 1 from the distal transverse colon and the other from the proximal descending colon by snare polypectomy. He had been off his anticoagulants for a few days and resumed after being off it for about 3-4 days. This morning, he noticed that he was having some lower GI bleeding and was advised to come to the ER for admission. He has been noted in the ER to have vitals stable and he had some lab work done, lab work shows that he has hemoglobin of 14, hematocrit of 42.5 and MCV of 97. His INR is 1.2. His blood chemistry shows a BUN of 20 and creatinine of 1.2. Electrolytes appear to be normal except for some slight electrolyte abnormality, glucose is 106. ALLERGIES: He has no known allergies. SOCIAL HISTORY: He has not smoked in over 10 years. Admits to drinking alcohol. Denies any history of any stents or any history of heart attacks, CVA in the past, but has underlying history of hypertension and has been told that he has cardiac asthma. Also has a history of rapid heart rate for which he is on anticoagulants. PHYSICAL EXAMINATION: VITAL SIGNS: Otherwise are stable at present, he is afebrile. Temperature is 97.6; heart rate 93; blood pressure is 91/69 initially, it has since come up to 125/80-103/72. HEENT: Shows no JVD. LUNGS: Clear to auscultation. CARDIOVASCULAR: Normal. ABDOMEN: Soft. Bowel sounds present. NEUROLOGIC: He is alert and oriented. The patient answers appropriately to question. Hemoglobin stable at the moment. ASSESSMENT: Lower gastrointestinal bleeding, possibly secondary from his polypectomy site, possibly secondary to resumption of anticoagulants; history of hypertension; history of cardiac asthma; history of gout and a history of tachyarrhythmia. PLAN: To hold anticoagulants as well as any NSAIDs for now. Place him on a clear liquid diet. Monitor his H and H and his labs. If there is subsequent significant fall in his hemoglobin, he may require blood transfusion and possibly a repeat colonoscopy with cauterization of the bleeding sites. The patient will be placed on a clear liquid diet, but colonoscopy will be held off for now to see if the patient's bleeding stops on its own or not. The patient is to be admitted by the hospitalist. JOB# [id number] DEL/CHANDLER AHN
--- NOTE | 2019-07-12 15:37 | Progress Note ---
Assessment and Plan Assessment and plan: 73 YO Male with Atrial Fib on Therapeutic anticoagulation with Xarelto, HTN, OA, Asthma presents to ED for evaluation. Pt states that he underwent a colonoscopy with polypectomy x7 last week. Pt restarted his anticoagulation 3 days ago. Pt has also experienced abdominal discomfort over the past 2 days with the sudden onset of bloody stools overnight. Pt acknowledges multiple bloody bowel movements overnight. Pt also reports generalized weakness. Pt transported to [facility] via private vehicle. Pt seen and evaluated in ED and found to have GI Bleed complicated by Acidosis. Pt admitted to [facility]. Pt denies fever, chills, CP, palpitations, trauma, syncope, ingestion of food/water from new/different sources. No prior admission for review. All listed medication reconciled at time of admission. (1) GI bleed Current Visit: Yes Status: Acute Qualifiers: GI bleed type/associated pathology: unspecified gastrointestinal hemorrhage type Qualified Code(s): K92.2 - Gastrointestinal hemorrhage, unspecified Plan to address problem: PPI therapy, serial cbc, PRBC transfusion if hgb drops more than 2 grams on sequential CBC, GI consulted in ED, Hold anticoagulation, repeat cbc GI input noted. Possible repeat colonosocopy if continues to bleed. (2) Acidosis-Metabolic Current Visit: Yes Status: Acute Plan to address problem: IVF resuscitation therapy, repeat bmp, IV bicarbonate x 1 (3) Obesity hypoventilation syndrome Current Visit: Yes Status: Acute Plan to address problem: Supplemental oxygen, nebulizer therapy, NIPPV as clinically indicated, (4) Hypotension due to blood loss Current Visit: Yes Status: Acute Plan to address problem: IVF resuscitation therapy, monitor bp q shift, (5) Atrial Fib: persistent. Continue rate control, hold anticoagulation secondary to GI bleeding. (6)DVT prophylaxis Current Visit: Yes Status: Acute Plan to address problem: SCD to BLE while in bed, supportive care, hold anticoagulation secondary to GI bleed History Interval history: Patient seen and examined, no acute distress. reports BM but with small blood stain, which is much improved from previous. Hospitalist Physical - Constitutional Vitals: Temp Pulse Resp BP Pulse Ox 97.7 F 89 18 153/86 98 07/12/19 12:00 07/12/19 15:00 07/12/19 15:00 07/12/19 15:00 07/12/19 15:00 General appearance: Present: well-nourished, obese - EENT Eyes: Present: PERRL, EOM intact ENT: hearing intact, clear oral mucosa - Neck Neck: Present: supple, normal ROM - Respiratory Respiratory effort: normal Respiratory: bilateral: CTA - Cardiovascular Rhythm: regular Heart Sounds: Present: S1 & S2. Absent: systolic murmur, diastolic murmur - Extremities Extremities: no ischemia, pulses intact, pulses symmetrical, No edema, normal temperature, normal color, Full ROM Peripheral Pulses: within normal limits - Abdominal General gastrointestinal: soft, non-tender, non-distended, normal bowel sounds - Integumentary Integumentary: Present: clear, warm - Psychiatric Psychiatric: appropriate mood/affect, intact judgment & insight, memory intact - Neurologic Neurologic: CNII-XII intact, focal deficits, moves all extremities, gait normal - Allied Health Allied health notes reviewed: nursing Results - Labs CBC & Chem 7: 07/12/19 12:26 07/12/19 09:00 Labs: Laboratory Last Values WBC 4.8 K/mm3 (4.5-11.0) 07/12/19 12:26 RBC 3.07 M/mm3 (3.65-5.03) L 07/12/19 12:26 Hgb 9.8 gm/dl (11.8-15.2) L 07/12/19 12:26 Hct 29.8 % (35.5-45.6) L 07/12/19 12:26 MCV 97 fl (84-94) H 07/12/19 12:26 MCH 32 pg (28-32) 07/12/19 12:26 MCHC 33 % (32-34) 07/12/19 12:26 RDW 14.3 % (13.2-15.2) 07/12/19 12:26 Plt Count 181 K/mm3 (140-440) 07/12/19 12:26 Lymph % (Auto) 23.2 % (13.4-35.0) 07/12/19 12:26 Tama % (Auto) 5.0 % (0.0-7.3) 07/12/19 12:26 Eos % (Auto) 4.4 % (0.0-4.3) H 07/12/19 12:26 Baso % (Auto) 0.7 % (0.0-1.8) 07/12/19 12: Lymph # 1.1 K/mm3 (1.2-5.4) L 07/12/19 12:26 Tama # 0.2 K/mm3 (0.0-0.8) 07/12/19 12:26 Eos # 0.2 K/mm3 (0.0-0.4) 07/12/19 12:26 Baso # 0.0 K/mm3 (0.0-0.1) 07/12/19 12:26 Seg Neutrophils % 66.7 % (40.0-70.0) 07/12/19 12:26 Seg Neutrophils # 3.2 K/mm3 (1.8-7.7) 07/12/19 12:26 PT 14.1 Sec. (12.2-14.9) 07/12/19 09:00 INR 1.10 (0.87-1.13) 07/12/19 09:00 APTT 32.7 Sec. (24.2-36.6) 07/11/19 11:27 Sodium 144 mmol/L (137-145) 07/12/19 09:00 Potassium 4.1 mmol/L (3.6-5.0) 07/12/19 09:00 Chloride 114.0 mmol/L (98-107) H 07/12/19 09:00 Carbon Dioxide 17 mmol/L (22-30) L 07/12/19 09:00 Anion Gap 17 mmol/L 07/12/19 09:00 BUN 14 mg/dL (9-20) 07/12/19 09:00 Creatinine 0.9 mg/dL (0.8-1.5) 07/12/19 09:00 Estimated GFR > 60 ml/min 07/12/19 09:00 BUN/Creatinine Ratio 16 % 07/12/19 09:00 Glucose 114 mg/dL (75-100) H 07/12/19 09:00 Calcium 7.9 mg/dL (8.4-10.2) L 07/12/19 09:00 Total Bilirubin 0.50 mg/dL (0.1-1.2) 07/12/19 04:58 AST 16 units/L (5-40) 07/12/19 04:58 ALT 18 units/L (7-56) 07/12/19 04:58 Alkaline Phosphatase 41 units/L (35-129) 07/12/19 04:58 Total Protein 4.9 g/dL (6.3-8.2) L D 07/12/19 04:58 Albumin 3.1 g/dL (3.9-5) L 07/12/19 04:58 Albumin/Globulin Ratio 1.7 % 07/12/19 04:58 Folate > 20 ng/mL (7.3-26.0) 07/11/19 21:00 Blood Type A POSITIVE 07/11/19 11:27 Antibody Screen Negative 07/11/19 11:27 Crossmatch See Detail 07/11/19 11:27 Active Medications - Current Medications Current Medications: Generic Name Dose Route Start Last Admin Trade Name Freq PRN Reason Stop Dose Admin Acetaminophen 650 mg 07/11/19 13:56 Tylenol PO Q4H PRN Pain MILD(1-3)/Fever >100.5/MEJÍA Amlodipine Besylate 5 mg 07/12/19 10:00 07/12/19 10:11 Amlodipine PO 5 mg QDAY NOEMI Administration Sodium Chloride 1,000 mls @ 75 mls/hr 07/11/19 14:00 07/11/19 20:18 Nacl 0.9% 1000 Ml IV 75 mls/hr DIRECT NOEMI Administration Sodium Chloride 500 mls @ 0 mls/hr 07/12/19 12:15 Nacl 0.9% 500 Ml IV 07/12/19 23:59 ONCE NR As Directed Miscellaneous Medication 0.4 mg 07/11/19 14:00 Tamsulosin PO PRN NOEMI Ondansetron HCl 4 mg 07/11/19 13:56 Zofran IV Q8H PRN Nausea And Vomiting Pantoprazole Sodium 40 mg 07/11/19 14:04 07/12/19 10:11 Protonix IV 40 mg BID NOEMI Administration Sodium Chloride 10 ml 07/11/19 22:00 07/12/19 10:11 Sodium Chloride Flush Syringe 10 Ml IV 10 ml BID NOEMI Administration Sodium Chloride 10 ml 07/11/19 13:56 Sodium Chloride Flush Syringe 10 Ml IV PRN PRN LINE FLUSH
[2019-07-12 19:14] LABS: Basophils % (Auto) 0.7 % (0.0-1.8); Eosinophils # (Auto) 0.3 K/mm3 (0.0-0.4); Eosinophils % (Auto) 4.7 % (0.0-4.3); Hematocrit 33.4 % (35.5-45.6); Hemoglobin 11.3 gm/dl (11.8-15.2); Lymphocytes # (Auto) 1.4 K/mm3 (1.2-5.4); Lymphocytes % (Auto) 24.3 % (13.4-35.0); Mean Corpuscular HGB Conc 34 % (32-34); Mean Corpuscular Volume 95 fl (84-94); Monocytes # (Auto) 0.4 K/mm3 (0.0-0.8); Monocytes % (Auto) 6.3 % (0.0-7.3); Platelet Count 199 K/mm3 (140-440); Red Cell Distribution Width 14.6 % (13.2-15.2)
[2019-07-12] MEDS: TAMSULOSIN 0.4 MG CAP PO SCH (21:12)
[2019-07-12] MEDS ORDERED: NON-FORMULARY EACH (Tamsulosin 0.4 MG) PO SCH (22:00)
[2019-07-13] MEDS: SODIUM CHLORIDE 0.9% 1000 ML 1,000 ML IV SCH ×2 (02:53→21:30)
[2019-07-13 08:00] LABS: BUN/Creatinine Ratio 10; Blood Urea Nitrogen 8 mg/dL (9-20); Calcium 8.5 mg/dL (8.4-10.2); Hemolysis Index 4
[2019-07-13] MEDS: PANTOPRAZOLE 40 MG INJ IV SCH (09:40)
[2019-07-13] MEDS: amLODIPine 5 MG TAB PO SCH (09:40)
--- NOTE | 2019-07-13 09:58 | Progress Note ---
Subjective Date of service: 07/13/19 Interval history: Patient states that he has not had any further bleeding since yesterday afternoon. Patient has received one Unit of PRBC with improvement of his Hemoglobin; patient's vitals are stable and patient may be transferred out of the ICU if the patient continues to do well clinicially. Patient is alert,oriented and in no apparent distress. Patient has had an improvement in his Hemoglobin and Hematocrit, possibly secondary to receiving one Unit of PRBC. Patient has been given the option of having a repeat colonoscopy done to assess the source of the bleeding and to cauterize the bleeding site, if needed. Patient would like to wait an additional day before deciding on a Colonoscopy (as the patient feels that possibly his lower GI bleeding appears to have alre carlita stopped as of yesterday afternoon). 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 Hypertension/H/O Cardiac Asthma Will hold off on doing colonoscopy as the patient's GI Bleeding, appears to have stopped. Objective - Constitutional Vitals: Vital Signs - 12hr 07/12/19 07/12/19 07/12/19 22:01 22:21 23:01 Temperature Pulse Rate 93 H 77 96 H Pulse Rate [ From Monitor] Respiratory 19 29 H 37 H Rate Blood Pressure 149/87 149/87 149/87 O2 Sat by Pulse 98 95 95 Oximetry 07/12/19 07/13/19 07/13/19 23:20 00:00 01:01 Temperature 97.7 F Pulse Rate 90 90 88 Pulse Rate [ 116 H From Monitor] Respiratory 20 14 Rate Blood Pressure 164/91 157/93 O2 Sat by Pulse 97 99 Oximetry 07/13/19 07/13/19 07/13/19 02:01 03:00 04:00 Temperature 97.9 F Pulse Rate 102 H 84 84 Pulse Rate [ 89 From Monitor] Respiratory 22 33 H 16 Rate Blood Pressure 157/93 139/81 140/82 O2 Sat by Pulse 99 97 94 Oximetry 07/13/19 07/13/19 07/13/19 05:01 06:01 08:00 Temperature 97.7 F Pulse Rate 107 H 115 H Pulse Rate [ From Monitor] Respiratory 21 16 Rate Blood Pressure 140/82 140/82 O2 Sat by Pulse 97 96 Oximetry 07/13/19 07/13/19 08:31 09:40 Temperature Pulse Rate 106 H Pulse Rate [ From Monitor] Respiratory Rate Blood Pressure 141/82 O2 Sat by Pulse 97 Oximetry - Labs CBC & Chem 7: 07/12/19 18:49 07/13/19 06:53 Labs: Abnormal lab results 07/11/19 07/12/19 07/12/19 Range/Units 11:27 09:00 09:00 RBC 3.25 L (3.65-5.03) M/mm3 Hgb 10.3 L (11.8-15.2) gm/dl Hct 31.2 L (35.5-45.6) % MCV 96 H (84-94) fl Eos % (Auto) (0.0-4.3) % Lymph # (1.2-5.4) K/mm3 Chloride 114.0 H (98-107) mmol/L Carbon Dioxide 17 L (22-30) mmol/L BUN (9-20) mg/dL Glucose 114 H (75-100) mg/dL Calcium 7.9 L (8.4-10.2) mg/dL Crossmatch See Detail 07/12/19 07/12/19 07/13/19 Range/Units 12:26 18:49 06:53 RBC 3.07 L 3.50 L (3.65-5.03) M/mm3 Hgb 9.8 L 11.3 L (11.8-15.2) gm/dl Hct 29.8 L 33.4 L (35.5-45.6) % MCV 97 H 95 H (84-94) fl Eos % (Auto) 4.4 H 4.7 H (0.0-4.3) % Lymph # 1.1 L (1.2-5.4) K/mm3 Chloride 109.2 H (98-107) mmol/L Carbon Dioxide 19 L (22-30) mmol/L BUN 8 L (9-20) mg/dL Glucose (75-100) mg/dL Calcium (8.4-10.2) mg/dL Crossmatch Medications & Allergies - Medications Allergies/Adverse Reactions: Allergies No Known Allergies Allergy (Unverified 07/04/19 14:08) Home Medications: Home Medications Medication Instructions Recorded Confirmed Last Taken Type Allopurinol 07/04/19 07/03/19 History Atenolol 07/04/19 07/05/19 06:00 History Indomethacin 07/04/19 07/03/19 History Meloxicam 07/04/19 07/03/19 History Potassium 07/04/19 07/03/19 History ProAir HFA Inhaler 07/04/19 Unknown History Protonix 07/04/19 07/03/19 History Symbicort 160-4.5 Mcg Inhaler 07/04/19 07/03/19 History Tamsulosin 0.4 PO PRN 07/04/19 Unknown History Xarelto 07/04/19 06/30/19 History amLODIPine 5 mg PO DAILY 07/04/19 07/05/19 07/05/19 06:00 History Active Medications: Generic Name Dose Route Start Last Admin Trade Name Freq PRN Reason Stop Dose Admin Acetaminophen 650 mg 07/11/19 13:56 Tylenol PO Q4H PRN Pain MILD(1-3)/Fever >100.5/MEJÍA Amlodipine Besylate 5 mg 07/12/19 10:00 07/13/19 09:40 Amlodipine PO 5 mg QDAY NOEMI Administration Sodium Chloride 1,000 mls @ 75 mls/hr 07/11/19 14:00 07/13/19 02:53 Nacl 0.9% 1000 Ml IV 75 mls/hr DIRECT NOEMI Administration Ondansetron HCl 4 mg 07/11/19 13:56 Zofran IV Q8H PRN Nausea And Vomiting Pantoprazole Sodium 40 mg 07/11/19 14:04 07/13/19 09:40 Protonix IV 40 mg BID NOEMI Administration Sodium Chloride 10 ml 07/11/19 22:00 07/13/19 09:41 Sodium Chloride Flush Syringe 10 Ml IV 10 ml BID NOEMI Administration Sodium Chloride 10 ml 07/11/19 13:56 Sodium Chloride Flush Syringe 10 Ml IV PRN PRN LINE FLUSH Tamsulosin HCl 0.4 mg 07/12/19 22:00 07/12/19 21:12 Flomax PO 0.4 mg QHS NOEMI Administration
--- NOTE | 2019-07-13 14:29 | Progress Note ---
Assessment and Plan Assessment and plan: 73 YO Male with Atrial Fib on Therapeutic anticoagulation with Xarelto, HTN, OA, Asthma presents to ED for evaluation. Pt states that he underwent a colonoscopy with polypectomy x7 last week. Pt restarted his anticoagulation 3 days ago. Pt has also experienced abdominal discomfort over the past 2 days with the sudden onset of bloody stools overnight. Pt acknowledges multiple bloody bowel movements overnight. Pt also reports generalized weakness. Pt transported to [facility] via private vehicle. Pt seen and evaluated in ED and found to have GI Bleed complicated by Acidosis. Pt admitted to [facility]. Pt denies fever, chills, CP, palpitations, trauma, syncope, ingestion of food/water from new/different sources. No prior admission for review. All listed medication reconciled at time of admission. (1) GI bleed Current Visit: Yes Status: Acute Qualifiers: GI bleed type/associated pathology: unspecified gastrointestinal hemorrhage type Qualified Code(s): K92.2 - Gastrointestinal hemorrhage, unspecified Plan to address problem: PPI therapy, serial cbc, PRBC transfusion if hgb drops more than 2 grams on sequential CBC, GI consulted in ED, Hold anticoagulation, repeat cbc Starting on Diet and NPO after midnight. Monitoring one more night and if no further bleed will discharge in am GI input noted. Possible repeat colonosocopy if continues to bleed. Follow with GI outpatient for pathology (2) Acidosis-Metabolic Current Visit: Yes Status: Acute Plan to address problem: IVF resuscitation therapy, repeat bmp, IV bicarbonate x 1 Resolved (3) Obesity hypoventilation syndrome Current Visit: Yes Status: Acute Plan to address problem: Supplemental oxygen, nebulizer therapy, NIPPV as clinically indicated, (4) Hypotension due to blood loss Current Visit: Yes Status: Acute Plan to address problem: IVF resuscitation therapy, monitor bp q shift, (5) Atrial Fib: persistent. Continue rate control, hold anticoagulation secondary to GI bleeding. Restart on discharge (6)DVT prophylaxis Current Visit: Yes Status: Acute Plan to address problem: SCD to BLE while in bed, supportive care, hold anticoagulation secondary to GI bleed History Interval history: Patient seen and examined, no acute distress. No further report of bloody stool, although no new bowel movement today Hospitalist Physical - Constitutional Vitals: Temp Pulse Resp BP Pulse Ox 97.0 F L 93 H 19 143/92 97 07/13/19 12:00 11/14/19 10:00 07/13/19 10:00 07/13/19 10:00 07/13/19 10:00 General appearance: Present: no acute distress, well-nourished, obese - EENT Eyes: Present: PERRL, EOM intact ENT: hearing intact, clear oral mucosa - Neck Neck: Present: supple, normal ROM - Respiratory Respiratory effort: normal Respiratory: bilateral: CTA - Cardiovascular Rhythm: regular Heart Sounds: Present: S1 & S2. Absent: systolic murmur, diastolic murmur - Extremities Extremities: no ischemia, pulses intact, pulses symmetrical, No edema, normal temperature, normal color, Full ROM Peripheral Pulses: within normal limits - Abdominal General gastrointestinal: soft, non-tender, non-distended, normal bowel sounds - Integumentary Integumentary: Present: clear, warm, dry - Psychiatric Psychiatric: appropriate mood/affect, intact judgment & insight, memory intact, cooperative - Neurologic Neurologic: CNII-XII intact, moves all extremities - Allied Health Allied health notes reviewed: nursing Results - Labs CBC & Chem 7: 07/12/19 18:49 07/13/19 06:53 Labs: Laboratory Last Values WBC 5.7 K/mm3 (4.5-11.0) 07/12/19 18:49 RBC 3.50 M/mm3 (3.65-5.03) L 07/12/19 18:49 Hgb 11.3 gm/dl (11.8-15.2) L 07/12/19 18:49 Hct 33.4 % (35.5-45.6) L 07/12/19 18:49 MCV 95 fl (84-94) H 07/12/19 18:49 MCH 32 pg (28-32) 07/12/19 18:49 MCHC 34 % (32-34) 07/12/19 18:49 RDW 14.6 % (13.2-15.2) 07/12/19 18:49 Plt Count 199 K/mm3 (140-440) 07/12/19 18:49 Lymph % (Auto) 24.3 % (13.4-35.0) 07/12/19 18:49 Dickson % (Auto) 6.3 % (0.0-7.3) 07/12/19 18:49 Eos % (Auto) 4.7 % (0.0-4.3) H 07/12/19 18:49 Baso % (Auto) 0.7 % (0.0-1.8) 07/12/19 18:49 Lymph # 1.4 K/mm3 (1.2-5.4) 07/12/19 18:49 Dickson # 0.4 K/mm3 (0.0-0.8) 07/12/19 18:49 Eos # 0.3 K/mm3 (0.0-0.4) 07/12/19 18:49 Baso # 0.0 K/mm3 (0.0-0.1) 07/12/19 18:49 Seg Neutrophils % 64.0 % (40.0-70.0) 07/12/19 18:49 Seg Neutrophils # 3.6 K/mm3 (1.8-7.7) 07/12/19 18:49 PT 14.1 Sec. (12.2-14.9) 07/12/19 09:00 INR 1.10 (0.87-1.13) 07/12/19 09:00 APTT 32.7 Sec. (24.2-36.6) 07/11/19 11:27 Sodium 143 mmol/L (137-145) 07/13/19 06:53 Potassium 3.7 mmol/L (3.6-5.0) 07/13/19 06:53 Chloride 109.2 mmol/L (98-107) H 07/13/19 06:53 Carbon Dioxide 19 mmol/L (22-30) L 07/13/19 06:53 Anion Gap 19 mmol/L 07/13/19 06:53 BUN 8 mg/dL (9-20) L 07/13/19 06:53 Creatinine 0.8 mg/dL (0.8-1.5) 07/13/19 06:53 Estimated GFR > 60 ml/min 07/13/19 06:53 BUN/Creatinine Ratio 10 % 07/13/19 06:53 Glucose 97 mg/dL (75-100) 07/13/19 06:53 Calcium 8.5 mg/dL (8.4-10.2) 07/13/19 06:53 Total Bilirubin 0.50 mg/dL (0.1-1.2) 07/12/19 04:58 AST 16 units/L (5-40) 07/12/19 04:58 ALT 18 units/L (7-56) 07/12/19 04:58 Alkaline Phosphatase 41 units/L (35-129) 07/12/19 04:58 Total Protein 4.9 g/dL (6.3-8.2) L D 07/12/19 04:58 Albumin 3.1 g/dL (3.9-5) L 07/12/19 04:58 Albumin/Globulin Ratio 1.7 % 07/12/19 04:58 Vitamin B12 474.5 pg/mL (211-911) 07/13/19 06:53 Folate > 20 ng/mL (7.3-26.0) 07/11/19 21:00 Blood Type A POSITIVE 07/11/19 11:27 Antibody Screen Negative 07/11/19 11:27 Crossmatch See Detail 07/11/19 11:27 Active Medications - Current Medications Current Medications: Generic Name Dose Route Start Last Admin Trade Name Freq PRN Reason Stop Dose Admin Acetaminophen 650 mg 07/11/19 13:56 Tylenol PO Q4H PRN Pain MILD(1-3)/Fever >100.5/MEJÍA Amlodipine Besylate 5 mg 07/12/19 10:00 07/13/19 09:40 Amlodipine PO 5 mg QDAY NOEMI Administration Sodium Chloride 1,000 mls @ 75 mls/hr 07/11/19 14:00 07/13/19 02:53 Nacl 0.9% 1000 Ml IV 75 mls/hr DIRECT NOEMI Administration Ondansetron HCl 4 mg 07/11/19 13:56 Zofran IV Q8H PRN Nausea And Vomiting Pantoprazole Sodium 40 mg 07/13/19 22:00 Protonix PO BID NOEMI Sodium Chloride 10 ml 07/11/19 22:00 07/13/19 09:41 Sodium Chloride Flush Syringe 10 Ml IV 10 ml BID NOEMI Administration Sodium Chloride 10 ml 07/11/19 13:56 Sodium Chloride Flush Syringe 10 Ml IV PRN PRN LINE FLUSH Tamsulosin HCl 0.4 mg 07/12/19 22:00 07/12/19 21:12 Flomax PO 0.4 mg QHS NOEMI Administration
[2019-07-13] MEDS: PANTOPRAZOLE 40 MG TAB PO SCH (21:29)
[2019-07-13] MEDS: TAMSULOSIN 0.4 MG CAP PO SCH (21:29)
[2019-07-14] MEDS: PANTOPRAZOLE 40 MG TAB PO SCH (09:06)
[2019-07-14] MEDS: amLODIPine 5 MG TAB PO SCH (09:06)
[2019-07-14 09:07] VITALS: BP 125/87
[2019-07-14 09:12] LABS: Hematocrit 33.7 % (35.5-45.6); Hemoglobin 11.4 gm/dl (11.8-15.2)
[2019-07-14 09:32] LABS: BUN/Creatinine Ratio 8; Blood Urea Nitrogen 6 mg/dL (9-20); Calcium 8.5 mg/dL (8.4-10.2); Hemolysis Index 135
--- NOTE | 2019-07-14 10:28 | Discharge Summary ---
Providers - Providers Date of Admission: 07/11/19 13:56 Attending physician: RASHAD MIX MD 07/11/19 13:56 Consult to Physician [CONS] Routine Comment: DR RUDY SUN W/DR MERRITT REGARDING PT Consulting Provider: TREVOR MERRITT Physician Instructions: Reason For Exam: gi bleed [facility] Reason for admission: gi bleed Condition: Stable Hospital course: 73 YO Male with Atrial Fib on Therapeutic anticoagulation with Xarelto, HTN, OA, Asthma presents to ED for evaluation. Pt states that he underwent a colonoscopy with polypectomy x7 last week. Pt restarted his anticoagulation 3 days ago. Pt has also experienced abdominal discomfort over the past 2 days with the sudden onset of bloody stools overnight. Pt acknowledges multiple bloody bowel movements overnight. Pt also reports generalized weakness. Pt transported to [facility] via private vehicle. Pt seen and evaluated in ED and found to have GI Bleed complicated by Acidosis. Pt admitted to [facility]. Pt denies fever, chills, CP, palpitations, trauma, syncope, ingestion of food/water from new/different sources. No prior admission for review. All listed medication reconciled at time of admission. (1) GI bleed Current Visit: Yes Status: Acute Qualifiers: GI bleed type/associated pathology: unspecified gastrointestinal hemorrhage type Qualified Code(s): K92.2 - Gastrointestinal hemorrhage, unspecified Plan to address problem: PPI therapy, serial cbc, PRBC transfusion if hgb drops more than 2 grams on sequential CBC, GI consulted in ED, Anticoagulation HELD Monitoring one more night and if no further bleed will discharge in am GI input noted. Possible repeat colonosocopy if continues to bleed. Follow with GI outpatient for pathology Advised patient to follow with cardiology about anticoagulation GI advised patient to hold anticoagulation for additional week. Patient understand associated risk (2) Acidosis-Metabolic Current Visit: Yes Status: Acute Plan to address problem: IVF resuscitation therapy, repeat bmp, IV bicarbonate x 1 Resolved (3) Obesity hypoventilation syndrome Current Visit: Yes Status: Acute Plan to address problem: Supplemental oxygen, nebulizer therapy, NIPPV as clinically indicated, (4) Hypotension due to blood loss Current Visit: Yes Status: Acute Plan to address problem: IVF resuscitation therapy, monitor bp q shift, (5) Atrial Fib: persistent. Continue rate control, hold anticoagulation secondary to GI bleeding. Restart on discharge Disposition: DC-01 TO HOME OR SELFCARE Time spent for discharge: 35 mins Core Measure Documentation - Palliative Care Palliative Care/ Comfort Measures: Not Applicable - Core Measures Any of the following diagnoses?: none Exam - Constitutional Vitals: Temp Pulse Resp BP Pulse Ox 98.3 F 148 H 18 125/87 96 07/14/19 07:18 07/14/19 10:07 07/14/19 07:18 07/14/19 09:06 07/14/19 09:56 General appearance: Present: no acute distress, obese - EENT Eyes: Present: PERRL, EOM intact - Neck Neck: Present: supple, normal ROM - Cardiovascular Rhythm: regular Heart Sounds: Present: S1 & S2. Absent: systolic murmur, diastolic murmur - Extremities Extremities: no ischemia, pulses intact, pulses symmetrical, No edema, normal temperature, normal color, Full ROM Peripheral Pulses: within normal limits - Abdominal General gastrointestinal: Present: soft, non-tender, non-distended, normal bowel sounds - Integumentary Integumentary: Present: clear, warm - Musculoskeletal Musculoskeletal: strength equal bilaterally - Psychiatric Psychiatric: appropriate mood/affect, intact judgment & insight, memory intact, cooperative - Neurologic Neurologic: CNII-XII intact, moves all extremities - Allied Health Allied health notes reviewed: nursing Plan Activity: advance as tolerated, fall precautions Diet: low fat Special Instructions: record daily BP diary Additional Instructions: Resume anticoagulation after a week per GI unless otherwise advised by Cariologist, PCP or GI Follow up with: JENNIFER KASPER MD [Primary Care Provider] - 7 Days TREVOR MERRITT MD [Staff Physician] - 07/17/19 Forms: Accompanied Note
--- NOTE | 2019-07-14 10:35 | Progress Note ---
Subjective Date of service: 07/14/19 Interval history: Patient states that he has not had any further bleeding since day before yesterday. Patient is clinically doing well with stable vitals and in no apparent distress and wanting to be discharged. Ok for discharge from a GI standpoint. Patient has received one Unit of PRBC with improvement of his Hemoglobin; patient's vitals are stable and patient has been transferred out of the ICU. Patient is alert,oriented and in no apparent distress. Patient has had an improvement in his Hemoglobin and Hematocrit, possibly secondary to receiving one Unit of PRBC. Patient had been given the option of having a repeat colonoscopy done to assess the source of the bleeding and to cauterize the bleeding site, if needed. No Colonoscopy neededd at this point as the patient's GI bleeding has resolved for now. 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 Hypertension/H/O Cardiac Asthma Will hold off on doing colonoscopy as the patient's GI Bleeding, appears to have stopped. Ok for discharge f from a GI standpoint. Adviced to F/U as Oupatient. Objective - Constitutional Vitals: Vital Signs - 12hr 07/14/19 07/14/19 07/14/19 01:54 01:56 02:17 Temperature 97.7 F Pulse Rate 90 92 H Pulse Rate [ From Monitor] Respiratory 18 Rate Blood Pressure 119/82 O2 Sat by Pulse 94 Oximetry 07/14/19 07/14/19 07/14/19 07:18 09:06 09:56 Temperature 98.3 F Pulse Rate 104 H 89 Pulse Rate [ 89 From Monitor] Respiratory 18 Rate Blood Pressure 153/88 125/87 O2 Sat by Pulse 96 96 Oximetry 07/14/19 10:07 Temperature Pulse Rate 148 H Pulse Rate [ From Monitor] Respiratory Rate Blood Pressure O2 Sat by Pulse Oximetry - Labs CBC & Chem 7: 07/14/19 08:44 07/14/19 08:44 Labs: Abnormal lab results 07/14/19 07/14/19 Range/Units 08:44 08:44 Hgb 11.4 L (11.8-15.2) gm/dl Hct 33.7 L (35.5-45.6) % Chloride 108.4 H (98-107) mmol/L Carbon Dioxide 16 L (22-30) mmol/L BUN 6 L (9-20) mg/dL Glucose 109 H (75-100) mg/dL Medications & Allergies - Medications Allergies/Adverse Reactions: Allergies No Known Allergies Allergy (Unverified 07/04/19 14:08) Home Medications: Home Medications Medication Instructions Recorded Confirmed Last Taken Type Allopurinol 07/04/19 07/03/19 History Atenolol 07/04/19 07/05/19 06:00 History Indomethacin 07/04/19 07/03/19 History Meloxicam 07/04/19 07/03/19 History Potassium 07/04/19 07/03/19 History ProAir HFA Inhaler 07/04/19 Unknown History Protonix 07/04/19 07/03/19 History Symbicort 160-4.5 Mcg Inhaler 07/04/19 07/03/19 History Tamsulosin 0.4 PO PRN 07/04/19 Unknown History Xarelto 07/04/19 06/30/19 History amLODIPine 5 mg PO DAILY 07/04/19 07/05/19 07/05/19 06:00 History Active Medications: Generic Name Dose Route Start Last Admin Trade Name Freq PRN Reason Stop Dose Admin Acetaminophen 650 mg 07/11/19 13:56 Tylenol PO Q4H PRN Pain MILD(1-3)/Fever >100.5/MEJÍA Amlodipine Besylate 5 mg 07/12/19 10:00 07/14/19 09:06 Amlodipine PO 5 mg QDAY NOEMI Administration Sodium Chloride 1,000 mls @ 75 mls/hr 07/11/19 14:00 07/13/19 21:30 Nacl 0.9% 1000 Ml IV 75 mls/hr DIRECT NOEMI Administration Ondansetron HCl 4 mg 07/11/19 13:56 Zofran IV Q8H PRN Nausea And Vomiting Pantoprazole Sodium 40 mg 07/13/19 22:00 07/14/19 09:06 Protonix PO 40 mg BID NOEMI Administration Sodium Chloride 10 ml 07/11/19 22:00 07/14/19 09:06 Sodium Chloride Flush Syringe 10 Ml IV Not Given BID NOEMI Sodium Chloride 10 ml 07/11/19 13:56 Sodium Chloride Flush Syringe 10 Ml IV PRN PRN LINE FLUSH Tamsulosin HCl 0.4 mg 07/12/19 22:00 07/13/19 21:29 Flomax PO 0.4 mg QHS NOEMI Administration
== END 2019-07-14 11:25 | disposition home or self-care (01) | DRG 378 ==
LOC: ED 10:18 → IMCU 13:56 → 2B-ACE 07-13 14:56
PROVIDERS: ADMIT Internal Medicine; ATTEND Internal Medicine
PROC: 30233N1 Transfusion of Nonautologous Red Blood Cells into Peripheral Vein, Percutaneous Approach (ICD-10-PCS; principal; 2019-07-12)
DX: K92.1 Melena (principal); E87.2 Acidosis; I48.19 Other persistent atrial fibrillation; E66.2 Morbid (severe) obesity with alveolar hypoventilation; M10.9 Gout, unspecified; I10 Essential (primary) hypertension; J45.909 Unspecified asthma, uncomplicated; Z96.651 Presence of right artificial knee joint; Z79.01 Long term (current) use of anticoagulants; Z79.899 Other long term (current) drug therapy; Z68.32 Body mass index [BMI] 32.0-32.9, adult; Z71.3 Dietary counseling and surveillance; Z87.891 Personal history of nicotine dependence
CPT/HCPCS: 36415; 36430; 80048; 80053; 82607; 82747; 85014; 85018; 85025; 85610; 85730; 86850; 86900; 86901; 86920; G0378; C9113; J3246; J7030; J7040; P9016; Q0162